=== PATIENT | male | born 1995 | race Caucasian/White ===

== ENCOUNTER 2022-04-05 10:20 | Observation (INO) | payer OTHER ==
[~2022-04-05] VITALS: Ht 190.5 cm; Wt 76.4 kg
[2022-04-05 12:40] VITALS: BP 116/82
--- NOTE | 2022-04-05 13:21 | PDOC1 ---
History and Physical Date of Admission Date of Admission DATE: 04/05/22 TIME: 13:21 Identification/Chief Complaint Chief Complaint Abdominal pain nausea vomiting Source Source: Chart review, Patient History of Present Illness History of Present Illness Mr Malhotra is a 26 year old male with past medical history of enlarged aortic root he does not know the details who presents to [facility] emergency department in [facility] with generalized abdomen pain with nausea and vomiting since 04/03/2022 around 8pm. He ate [employer] pizza that had been sitting out for a little over 4 hours. No recent travel. No specific ill contacts. No history of immunosuppression. Patient did get flu vaccination this season. Patient did get COVID vaccinations Moderna x3. Patient has been in contact of other sick individuals at [employer] where he works. His only other complaints are right shoulder stiffness he thinks possibly from carrying around his 2-month-old and 2-year-old. He sees Dr. Tom but has not been seen in several years. Goes to the ER and urgent care for most of his care. He quit smoking 2 months ago after the of his most recent child WBC 11.8, Hb 14, platelets 196, NA 137, K3.5, BUN 15, CR 0.8, glucose 108, calcium 9.3, bilirubin 0.3, AST 13, ALT 37, alkaline phosphatase 91, high- sensitivity troponin is 7, albumin 4.1, lipase 438, amylase 111, urine drug sc reen negative, urinalysis bland, rapid COVID-19 negative, rapid influenza negative. EKG heart rate 44 bpm MI 204, QTc 418, has rightward axis. No T WI or ST segment changes CT abd and pelvis with distended appendix concerning for appendicitis no signs of pancreatic inflammation Past Medical History Past Medical History Possible Marfan's syndrome diagnosis with dilated aortic root he does not know the details as his grandmother raised him. Cardiovascular: No pertinent hx Past Surgical History Past Surgical History Right Achilles surgery approximately 2006 Family History Family History Lives at home with his and 2-year-old and 2-month-old, works at [employer] full-time Family History: Hypertension Social History Smoke: Quit (January 2022) ALCOHOL: rare (1-2 drinks per month) Drugs: None Allergies Allergies: Coded Allergies: No Known Drug Allergies (Unverified , 04/05/22) ROS General: YES: Appetite; No: Chills, Night Sweats, Fatigue, Malaise, Other PSYCHOLOGICAL ROS: No: Anxiety, Behavioral Disorder, Concentration difficultie, Decreased libido, Depression, Disorientation, Hallucinations, Hostility, Irritablity, Memory difficulties, Mood Swings, Obsessive thoughts, Physical abuse, Sexual abuse, Sleep disturbances, Suicidal ideation, Other Eyes: No Blurry vision, No Decreased vision, No Double vision, No Dry eyes, No Excessive tearing, No Eye Pain, No Itchy Eyes, No Loss of vision, No Photophobia, No Scotomata, No Uses contacts, No Uses glasses, No Other HEENT: No: Heacaches, Visual Changes, Hearing change, Nasal congestion, Nasal discharge, Oral lesions, Sinus pain, Sore Throat, Epistaxis, Sneezing, Snoring, Tinnitus, Vertigo, Vocal changes, Other ALLERGY AND IMMUNOLOGY: No: Hives, Insect Bite Sensitivity, Itchy/Watery Eyes, Nasal Congestion, Post Nasal Drip, Seasonal Allergies, Other Hematological and Lymphatic: No: Bleeding Problems, Blood Clots, Blood Transfusions, Brusing, Night Sweats, Pallor, Swollen Lymph Nodes, Other ENDOCRINE: No: Breast Changes, Galactorrhea, Hair Pattern Changes, Hot Flashes, Malaise/lethargy, Mood Swings, Palpitations, Polydipsia/polyuria, Skin Changes, Temperature Intolerance, Unexpected Weight Changes, Other Breast: No New/Changing Breast Lumps, No Nipple changes, No Nipple discharge, No Other Respiratory: No: Cough, Hemoptysis, Orthopnea, Pleuritic Pain, Shortness of breath, SOB with excertion, Sputum Changes, Stridor, Tachypnea, Wheezing, Other Cardiovascular: No Chest Pain, No Palpitations, No Orthopnea, No Paroxysmal Noc. Dyspnea, No Edema, No Lt Headedness, No Other Gastrointestinal: Yes Nausea, Yes Vomiting, Yes Abdominal Pain; No Diarrhea, No Constipation, No Melena, No Hematochezia, No Other Genitourinary: No Dysuria, No Frequency, No Incontinence, No Hematuria, No Retention, No Discharge, No Urgency, No Pain, No Flank Pain, No Other, No , No , No , No , No , No , No Musculoskeletal: Yes Joint Stiffness (Right shoulder); No Gait Disturbance, No Joint Pain, No Joint Swelling, No Muscle Pain, No Muscular Weakness, No Pain In:, No Swelling In:, No Other Neurological: No Behavorial Changes, No Bowel/Bladder ControlChng, No Confusion, No Dizziness, No Gait Disturbance, No Headaches, No Impaired Coord/balance, No Memory Loss, No Numbness/Tingling, No Seizures, No Speech Problems, No Tremors, No Visual Changes, No Weakness, No Other Skin: No Dry Skin, No Eczema, No Hair Changes, No Lumps, No Mole Changes, No Mottling, No Nail Changes, No Pruritus, No Rash, No Skin Lesion Changes, No Other, No Acne Physical Exam General: Alert, Oriented X3, Cooperative, moderate distress HEENT: Atraumatic, PERRLA, EOMI, Mucous membr. moist/pink, Other (Glasses in place) Lungs: Clear to auscultation, Normal air movement Heart: S1S2, RRR, no thrills, no rubs, no gallops, no murmurs Abdomen: Normal bowel sounds, Soft, No hepatosplenomegaly, No masses, Other (Right lower quadrant tenderness and guarding) Extremities: No clubbing, No cyanosis, No edema, Normal pulses, No tenderness/swelling Skin: No rashes, No breakdown, No significant lesion Neuro: Normal gait, Normal speech, Strength at 5/5 X4 ext, Normal tone, Sensation intact, Cranial nerves 3-12 NL, Reflexes 2+ Psych/Mental Status: Mental status NL, Mood NL Images Images CT abdomen/pelvis without intravenous contrast Indication: Abdominal pain. Nausea and vomiting. Elevated lipase. Comparison: 12/29/2020 Technique: Helical CT imaging performed of the abdomen and pelvis without the use of intravenous contrast. Sagittal and coronal reformats were obtained. One or more of the following individualized dose reduction techniques were utilized for this examination: 1. Automated exposure control 2. Adjustment of the mA and/or kV according to patient size 3. Use of iterative reconstruction technique. Findings: Inherently limited evaluation without intravenous contrast. Positive oral contrast was administered. No abnormality seen at the lower chest. No newly apparent focal liver abnormality. A small portion of the hepatic dome is beyond the superior [id number]. Unremarkable gallbladder and biliary tree. No overt peripancreatic inflammation relatively homogeneous pancreatic parenchymal attenuation. The spleen is within normal limits for size. Unremarkable adrenal glands. Left more so than right pelviectasis without calyceal dilatation or hydroureter. No obstructing process is identified. Unremarkable bladder. Unchanged prostate with central mineralization. Mild volume colonic stool burden. Distended appendix and no gas within the lumen. The appendix is measured at 1 cm transverse on image 92 series 2. Nonobstructed small bowel. Unremarkable stomach. Nonaneurysmal abdominal aorta. No significant lymph node enlargement. No free fluid or pneumoperitoneum. No acute or aggressive osseous process. Impression: 1. Findings typical of mild acute appendicitis without any complication. The appendix is distended at up to 1 cm on image 92 series 2 and there is no gas within the lumen. 2. No definitive imaging manifestations of pancreatitis in the setting of reported lipase elevation. 3. Pelviectasis on the left more so than right but there is no hydroureter or calyceal dilatation to indicate obstruction. VTE Prophylaxis Ordered VTE Prophylaxis Devices: Yes VTE Pharmacological Prophylaxi: No Assessment/Plan Assessment/Plan Intractable abdominal pain - consistent with appendicitis on examination and CT findings. N.p.o. consult general surgery IV Zosyn every 6 hours. Nausea Vomiting -IV antiemetics and n.p.o. Elevated Lipase -likely related to vomiting Bradycardia -asymptomatic. He may have a dilated aortic root due to possible Marfan's diagnosis he does not know the details has not been seen by seed technician rarely sees his primary care physician. He has no chest pain or s hortness of breath heart rate is in 60s on examination FEN - NPO PPX - SCDs FULL CODE Dispo - inpatient for above Justifications for Admission Other Justification LAURA FRAIRE MD April 05, 2022 13:21
[2022-04-05] MEDS ORDERED: MORPHINE SULFATE 2 MG/ML INJ. IVP PRN ×2 (13:30→14:30)
[2022-04-05] MEDS ORDERED: ACETAMINOPHEN 325 MG TABLET. PO PRN (13:30)
[2022-04-05] MEDS ORDERED: ONDANSETRON PF 4 MG/2 ML VIAL. IVP PRN (13:30)
--- NOTE | 2022-04-05 13:32 | NUR ---
Patient arrived from [place] by EMS at approximately 1240. Rating pain at a 3/10. During admission assessment patient states that he does not take any home medications.
--- NOTE | 2022-04-05 13:38 | PDOC2 ---
CONSULT Date of Consult Date of Consult DATE: 04/05/22 TIME: 13:34 History of Present Illness Reason for Visit: The patient is a 26 year old male who reported to the ER at [facility] due to abdominal pain. The pain began yesterday and was located across the mid abdomen. He denies nausea or vomiting, but states that the pain remained persistent. Since its onset the pain has remained in the mid abdomen. He denies inciting or relieving factors. Past Medical History Past Medical History "eye" seizures Past Surgical History Past Surgical History leg surgery Social History No ALCOHOL: none Current Medications Current Medications Current Medications Acetaminophen (Tylenol) 650 mg PRN Q6HRS PRN PO MILD PAIN / TEMP > 100.3'F; Start 04/05/22 at 13:30 Ondansetron HCl (Zofran) 4 mg PRN Q4HRS PRN IVP NAUSEA/VOMITING; Start 04/05/22 at 13:30 Morphine Sulfate (Morphine Sulfate) 2 mg PRN Q2HR PRN IVP PAIN; Start 04/05/22 at 13:30 Allergies Allergies: Coded Allergies: No Known Drug Allergies (Unverified , 04/05/22) ROS General: No: Chills, Night Sweats, Fatigue, Malaise, Appetite, Other PSYCHOLOGICAL ROS: No: Anxiety, Behavioral Disorder, Concentration difficultie, Decreased libido, Depression, Disorientation, Hallucinations, Hostility, Irritablity, Memory difficulties, Mood Swings, Obsessive thoughts, Physical a buse, Sexual abuse, Sleep disturbances, Suicidal ideation, Other Eyes: No Blurry vision, No Decreased vision, No Double vision, No Dry eyes, No Excessive tearing, No Eye Pain, No Itchy Eyes, No Loss of vision, No Photophobia, No Scotomata, No Uses contacts, No Uses glasses, No Other HEENT: No: Heacaches, Visual Changes, Hearing change, Nasal congestion, Nasal discharge, Oral lesions, Sinus pain, Sore Throat, Epistaxis, Sneezing, Snoring, Tinnitus, Vertigo, Vocal changes, Other ALLERGY AND IMMUNOLOGY: No: Hives, Insect Bite Sensitivity, Itchy/Watery Eyes, Nasal Congestion, Post Nasal Drip, Seasonal Allergies, Other Hematological and Lymphatic: No: Bleeding Problems, Blood Clots, Blood Transfusions, Brusing, Night Sweats, Pallor, Swollen Lymph Nodes, Other ENDOCRINE: No: Breast Changes, Galactorrhea, Hair Pattern Changes, Hot Flashes, Malaise/lethargy, Mood Swings, Palpitations, Polydipsia/polyuria, Skin Changes, Temperature Intolerance, Unexpected Weight Changes, Other Cardiovascular: No Chest Pain, No Palpitations, No Orthopnea, No Paroxysmal Noc. Dyspnea, No Edema, No Lt Headedness, No Other Gastrointestinal: Yes Abdominal Pain Genitourinary: No Dysuria, No Frequency, No Incontinence, No Hematuria, No Retention, No Discharge, No Urgency, No Pain, No Flank Pain, No Other, No , No , No , No , No , No , No Musculoskeletal: No Gait Disturbance, No Joint Pain, No Joint Stiffness, No Joint Swelling, No Muscle Pain, No Muscular Weakness, No Pain In:, No Swelling In:, No Other Neurological: No Behavorial Changes, No Bowel/Bladder ControlChng, No Confus ion, No Dizziness, No Gait Disturbance, No Headaches, No Impaired Coord/balance, No Memory Loss, No Numbness/Tingling, No Seizures, No Speech Problems, No Tremors, No Visual Changes, No Weakness, No Other Skin: No Dry Skin, No Eczema, No Hair Changes, No Lumps, No Mole Changes, No Mottling, No Nail Changes, No Pruritus, No Rash, No Skin Lesion Changes, No Othe r, No Acne Physical Exam General: Alert, Oriented X3, Cooperative HEENT: Atraumatic Lungs: Clear to auscultation Abdomen: Soft (tender across mid abdomen, tender in R and L lower abdomen, no guarding) Extremities: No clubbing, No cyanosis Skin: No rashes Neuro: Normal speech Psych/Mental Status: Mental status NL MUSCULOSKELETAL: No deformity Vitals VITALS Vital Signs Date Time Temp Pulse Resp B/P (MAP) Pulse Ox O2 Delivery O2 Flow Rate FiO2 04/05/22 13:08 Room Air Assessment/Plan Assessment/Plan 26 year old male with mid abdominal pain, the CT scan is suggestive of appendicitis, WBC mildly elevated. The overall picture is equivocal. I reviewed options with the patient which include surgery with appendectomy vs observation. The advantages and disadvantages of both approaches were discussed. He understands and prefers to proceed with surgery. CHERYL SOSA MD April 05, 2022 13:38
[2022-04-05] MEDS ORDERED: fentaNYL PF VIAL 100 MCG/2 ML VIAL IVP PRN (14:30)
[2022-04-05] MEDS ORDERED: PROCHLORPERAZINE 10 MG/2 ML VIAL. IVP PRN (14:30)
[2022-04-05] MEDS ORDERED: HYDROmorphone 2 MG/ML INJ. IVP PRN (14:30)
[2022-04-05] MEDS: IV RINGERS,LACTATED 1000ML 1,000 ML IV SCH ×2 (14:32→17:55)
[2022-04-05] MEDS ORDERED: BUPIVACAINE-EPI 0.5% 30 ML VIAL KIT. ONE (14:45)
[2022-04-05] MEDS ORDERED: fentaNYL PF VIAL 100 MCG/2 ML VIAL ONE ×2 (15:44→18:08)
[2022-04-05] MEDS ORDERED: SEVOFLURANE 31 TO 60 MINUTES. IH ONE (15:44)
[2022-04-05] MEDS ORDERED: PROPOFOL 10 MG/ML (20ML) VIAL. IV ONE (15:44)
[2022-04-05] MEDS ORDERED: LIDOCAINE 2% PF 5 ML VIAL. ONE (15:44)
[2022-04-05] MEDS ORDERED: ROCURONIUM 50 MG/5 ML VIAL. ONE (15:44)
[2022-04-05] MEDS ORDERED: ONDANSETRON PF 4 MG/2 ML VIAL. ONE (15:44)
[2022-04-05] MEDS ORDERED: DEXAMETHASONE SOD PHOS 4 MG/ML VIAL ONE (15:44)
[2022-04-05] MEDS ORDERED: MIDAZOLAM HCL/PF 2 MG/2 ML VIAL. ONE (15:45)
[2022-04-05] MEDS ORDERED: ceFAZolin 2GM PREMIX 2 GM/50 ML BAG IV ONE (16:00)
[2022-04-05] MEDS ORDERED: NEOSTIGMINE METHYLSULFATE 5 MG/5 ML SYRINGE. ONE ×2 (17:10→17:45)
[2022-04-05] MEDS ORDERED: SUGAMMADEX SODIUM 200 MG/2 ML VIAL. IVP ONE (17:30)
[2022-04-05] MEDS ORDERED: GLYCOPYRROLATE 1 MG/5 ML VIAL. ONE (17:45)
[2022-04-05] MEDS: fentaNYL PF VIAL 100 MCG/2 ML VIAL IVP PRN ×2 (18:11→18:19)
--- NOTE | 2022-04-05 18:20 | PDOC4 ---
Operative Note Operative Note Preoperative Diagnosis: Acute Appendicitis Postoperative Diagnosis: Same Procedure: Laparoscopic appendectomy Surgeon: Reji Exterior Designer: Ange Rodriguez MS 3 Anesthesia: Gen. EBL: 10 mL Specimen: Appendix to pathology Drains: None Complications: None Indication: The patient is a 26-year-old male who reported to the emergency department with abdominal pain. The evaluation is consistent with acute appendicitis. The patient was offered surgical treatment with a laparoscopic appendectomy. The risks of surgery were discussed which include bleeding, infection, visceral injury, pain, anesthetic risk, potential need for additional surgery or procedure. The patient understands and would like to proceed. Description: The patient was taken to the operating room and placed supine on the operating table. Gen. anesthesia was performed. The abdomen was prepped with ChloraPrep and draped in a standard surgical manner. A supraumbilical incision w as made through which a veress needle was inserted and a pneumoperitoneum was created. A visualized 5 mm trocar was inserted and the laparoscope was introduced. In the left lower quadrant a 5 mm trocar was inserted. In the suprapubic region a 12 mm trocar was inserted. The appendix was identified and appeared inflamed consistent with acute appendicitis. There was no clear evide nce of perforation or periappendiceal abscess. The mesoappendix was bluntly from the appendix. The mesoappendix was controlled using several clips and it was divided. The appendix was then amputated off the cecum using an Endo ADA 45 stapling device. The appendix was then placed in an endoscopic bag and extracted at the suprapubic incision site. The fascia there was closed with 0 Vicryl and infiltrated with half percent Marcaine with epinephrine. The RLQ was visualized and the staple line appeared well intact and hemostasis was good. No other abnormalities were identified grossly. The remaining ports were removed and the pneumoperitoneum was relieved. The skin at all incision sites was closed with 4-0 Monocryl. Steri-Strips and dressings were applied. The patient tolerated the procedure well and was sent to the recovery room in stable condition. At the end of the case all counts were correct. CHERYL SOSA MD April 05, 2022 18:20
[2022-04-05] MEDS ORDERED: oxyCODONE/APAP 5/325 1 TAB TABLET PO PRN ×3 (18:30)
[2022-04-05 18:33] VITALS: BP 131/85
[2022-04-05 23:20] VITALS: BP 110/68
[2022-04-06 03:00] VITALS: BP 105/55
[2022-04-06 07:00] VITALS: BP 101/55
--- NOTE | 2022-04-06 08:40 | PDOC ---
SURGICAL PROGRESS NOTE DATE: 04/06/22 TIME: 08:39 Subjective tolerating diet sore, overall improved from preop Vital Signs Vital Signs Date Time Temp Pulse Resp B/P (MAP) Pulse Ox O2 Delivery O2 Flow Rate FiO2 04/06/22 08:31 Room Air 04/06/22 07:00 97.6 60 16 101/55 (70) 98 97.6 04/05/22 17:50 10.0 I&O Intake and Output 04/06/22 07:00 Intake Total 1100 ml Output Total 10 ml Balance 1090 ml Intake Oral 0 ml IV Total 1100 ml Output Estimated Blood Loss 10 ml General: Alert, Oriented X3, Cooperative Abdomen: Soft, Other (lap dressings dry) Assessment/Plan s/p appy ok to dc home FU 2 weeks Justicifation of Admission Dx: Justifications for Admission: Justification of Admission Dx: Yes Comments: appendicitis MARK GRIFFITH LAUNDRY CLERK April 06, 2022 08:40
[2022-04-06] MEDS ORDERED: OXYC1TAB15 PO (08:42)
[2022-04-06] MEDS ORDERED: SENN1TAB99 PO (10:41)
--- NOTE | 2022-04-06 10:42 | DISCH ---
DISCHARGE INSTRUCTIONS Condition on Discharge Condition on Discharge: Stable Activity After Discharge Activity Instructions for Disc: Activity as tolerated Lifting Instructions after Dis: Do not lift >10 pounds Driving Instructions after Dis: Do not drive today Weight Bearing Status after Di: As tolerated Diet after Discharge Diet after Discharge: Regular Follow-Up Follow up with: General surgery within 2 weeks for postoperative check wound check Follow Up With: PCP within 2 weeks of discharge DARNELL MOSCOSO MD April 06, 2022 10:42
[2022-04-06 11:00] VITALS: BP 126/64
--- NOTE | 2022-04-06 12:50 | NUR ---
patient discharged to home with family. walked out with EMPLOYMENT CASE MANAGER and spouse
--- NOTE | 2022-04-09 12:29 | PDOC3 ---
[facility]-Discharge Summary Date of Admission: Date of Admission: April 05, 2022 Date of Discharge: Date of Discharge: April 06, 2022 Discharge Diagnosis: Discharge Diagnosis: Intractable abdominal pain - consistent with appendicitis on examination and CT findings. N.p.o. consult general surgery IV Zosyn every 6 hours. Nausea Vomiting -IV antiemetics and n.p.o. Elevated Lipase -likely related to vomiting Bradycardia -asymptomatic. He may have a dilated aortic root due to possible Marfan's diagnosis he does not know the details has not been seen by switchman rarely sees his primary care physician. He has no chest pain or shortness of breath heart rate is in 60s on examination Hospital Course: Hospital Course: 26 year old male with past medical history of enlarged aortic root he does not know the details who presents to [facility] emergency department in [facility] with generalized abdomen pain with nausea and vomiting since 04/03/2022 around 8pm. He ate [employer] pizza that had been sitting out for a little over 4 hours. No recent travel. No specific ill contacts. No history of immunosuppression. Patient did get flu vaccination this season. Patient did get COVID vaccinations Moderna x3. Patient has been in contact of other sick individuals at [facility] where he works. His only other complaints are right shoulder stiffness he thinks possibly from carrying around his 2-month-old and 2-year-old. He sees Dr. Tom but has not been seen in several years. Goes to the ER and urgent care for most of his care. He quit smoking 2 months ago after the of his most recent child WBC 11.8, Hb 14, platelets 196, NA 137, K3.5, BUN 15, CR 0.8, glucose 108, calcium 9.3, bilirubin 0.3, AST 13, ALT 37, alkaline phosphatase 91, high-sensitivity troponin is 7, albumin 4.1, lipase 438, amylase 111, urine drug screen negative, urinalysis bland, rapid COVID-19 negative, rapid influenza negative. EKG heart rate 44 bpm AR 204, QTc 418, has rightward axis. No T WI or ST segment changes CT abd and pelvis with distended appendix concerning for appendicitis no signs of pancreatic inflammation Patient admitted for further care and underwent laparoscopic appendectomy. Tolerated procedure well. Tolerating diet and ambulating without any difficulties. Pain is well controlled. Rest of hospital course was uneventful. Disposition: Disposition/Orders: D/C to Home Activity: Activity: Resume previous activity Diet: Diet: Regular Medications: Home Meds Active Scripts Sennosides/Docusate Sodium (Senna-Docusate Sodium Tablet) 1 Each Tablet, 1 TAB PO DAILY PRN for CONSTIPATION for 20 Days, #20 TAB 0 Refills Prov:DARNELL MOSCOSO MD 04/06/22 Oxycodone/Apap 5-325 (PERCOCET 5-325 MG TABLET ) 1 Each Tablet, 1 TAB PO PRN Q4HRS PRN for PAIN, #20 TAB 0 Refills Prov:NACHOMARK L NAIL MAKING MACHINE SETTER 04/06/22 Scheduled PRN Oxycodone/Apap 5-325 (Percocet 5-325 Mg Tablet ), 1 TAB PO PRN Q4HRS PRN for PAIN Sennosides/Docusate Sodium (Senna-Docusate Sodium Tablet), 1 TAB PO DAILY PRN for CONSTIPATION Total Time: Total Time: Total time spent was 32 minutes in preparing scripts, discharge planning with SWI and RN and preparing this discharge summary Patient seen and examined on day of discharge. No acute abnormal findings. Justicifation of Admission Dx: Justifications for Admission: Justification of Admission Dx: Yes DARNELL MOSCOSO MD April 09, 2022 12:29
--- NOTE | 2022-04-11 07:46 | PATHOLOGY ---
[facility] Accession Number: [id number] . 01 Material submitted: . appendix - APPENDIX . 01 Clinical history: . ACUTE APPENDICITIS . 02 Diagnosis: Appendix, laparoscopic appendectomy: - Acute appendicitis. ([facility]:mati; 04/10/2022) R 04/10/2022 1448 Local . 02 Comment: There is no evidence of rupture. ([facility]:mati; 04/10/2022) . 02 Electronically signed: . Mars Waters MD, Pathologist NPI- [id number] . 01 Gross description: . Fixative: Formalin Labeled: Appendix Perforation: None Appendix size: 7.5 cm in length by 0.9 cm in diameter Mesoappendix: Focally hemorrhagic, dusky and unremarkable Proximal margin: Inked green Serosa: [place] and dusky without obvious overlying fibrinous exudate Mucosa: [place], dusky but otherwise unremarkable Luminal diameter: Ranges from less than 0.1 cm to 0.5 cm Wall thickness: Ranges from 0.2 cm to 0.4 cm Lesions/abnormalities: None . A1-A2: Sampler First sections of appendix to include the proximal margin (submitted en face) and entirety of the serially sectioned lengthwise distal tip. ([facility]; 04/07/2022) DKA/DKA 04/07/2022 1559 Local . 02 Pathologist provided ICD-10: K35.80 . 02 CPT . 969301 Specimen Comment: A courtesy copy of this report has been sent to [phone], [phone] Specimen Comment: [id number] Specimen Comment: Report sent to / DR FRAIRE Specimen Comment: A duplicate report has been generated due to demographic updates. Performed at: [address] [facility] [id number] [facility] [address], [place], [place] [id number] MD Federico Broderick MD Phone: [phone] Performed at: [facility] [address], [place] [id number] MD Mars Waters MD Phone: [phone]
== END 2022-04-06 12:10 | disposition home or self-care (01) ==
LOC: INTOOBSV 10:20 → 4 NORTH 10:20
PROVIDERS: ADMIT Internal Medicine; ATTEND Internal Medicine
DX: K35.80 Unspecified acute appendicitis (principal); R11.2 Nausea with vomiting, unspecified; R10.9 Unspecified abdominal pain; E78.41 Elevated Lipoprotein(a); R00.1 Bradycardia, unspecified; N28.89 Other specified disorders of kidney and ureter; Z87.891 Personal history of nicotine dependence; Z79.899 Other long term (current) drug therapy; Z98.890 Other specified postprocedural states
CPT/HCPCS: 44970; A4209; A4314; A4364; A4930; A6219; G0378; G0379; J0690; J1100; J2250; J2405; J2704; J2710; J3010; J3490; J7120; A4452